=== PATIENT | male | born 1995 | race African-American/Black ===

== ENCOUNTER 2021-12-20 05:28 | Emergency (ER) | payer OTHER ==
[2021-12-20 05:37] VITALS: BP 118/71; PULSE 77; RESP 15; TEMP 99.6
--- NOTE | 2021-12-20 05:41 | ED ---
ENT HPI - General Chief complaint: ENT Stated complaint: throat issues Time Seen by Provider: 12/20/21 05:41 Source: patient, RN notes reviewed, old records reviewed Mode of arrival: ambulatory Limitations: no limitations - History of Present Illness Initial comments: This is a 26-year-old male DF for evaluation. Patient resents today for evaluation regards to sore throat, some difficulty swallowing. May have felt feverish last night but denies fever currently. No travel history or sick contacts. MD complaint: sore throat -: minutes(s) Location: throat Severity: mild Severity scale (1-10): 3 Quality: stabbing Consistency: constant Improves with: none Worsens with: none Context-Epistaxis: history of similar Context- Ear: recent illness Associated Symptoms: sore throat - Related Data Allergies Allergy/AdvReac Type Severity Reaction Status Date / Time No Known Allergies Allergy Verified 12/20/21 05:34 Review of Systems ROS Statement: Those systems with pertinent positive or pertinent negative responses have been documented in the HPI. ROS Other: All systems not noted in ROS Statement are negative. Past Medical History Past Medical History: Asthma History of Any Multi-Drug Resistant Organisms: None Reported Past Surgical History: No Surgical Hx Reported Past Psychological History: No Psychological Hx Reported Smoking Status: Never smoker Past Alcohol Use History: Occasional Past Drug Use History: None Reported General Exam Limitations: no limitations General appearance: alert, in no apparent distress Head exam: Present: atraumatic, normocephalic, normal inspection Eye exam: Present: normal appearance, PERRL, EOMI. Absent: scleral icterus, conjunctival injection, periorbital swelling ENT exam: Present: normal exam, normal oropharynx (Positive pharyngitis erythematous and swelling of tonsils), mucous membranes moist Neck exam: Present: normal inspection. Absent: tenderness, meningismus, lymphadenopathy Respiratory exam: Present: normal lung sounds bilaterally. Absent: respiratory distress, wheezes, rales, rhonchi, stridor Cardiovascular Exam: Present: regular rate, normal rhythm, normal heart sounds. Absent: systolic murmur, diastolic murmur, rubs, gallop, clicks GI/Abdominal exam: Present: soft, normal bowel sounds. Absent: distended, tenderness, guarding, rebound, rigid Extremities exam: Present: normal inspection, full ROM, normal capillary refill. Absent: tenderness, pedal edema, joint swelling, calf tenderness Back exam: Present: normal inspection Neurological exam: Present: alert, oriented X3, CN II-XII intact Psychiatric exam: Present: normal affect, normal mood Skin exam: Present: warm, dry, intact, normal color. Absent: rash Course Vital Signs 12/20/21 05:34 Temperature 99.6 F Pulse Rate 77 Respiratory 15 Rate Blood Pressure 118/71 O2 Sat by Pulse 99 Oximetry - Reevaluation(s) Reevaluation #1: 12/20/21 05:57 Medical records reviewed Reevaluation #2: 12/20/21 05:57 Patient feels improved here in the ER Reevaluation #3: 12/20/21 05:57 Patient informed of results and questions answered Medical Decision Making - Medical Decision Making 26 male presents with acute pharyngitis some difficulty swallowing sore throat. Patient given medication here in the ER feels improved will start on antibiotics and can be discharged home - Radiology Data Radiology results: report reviewed, image reviewed Disposition Clinical Impression: Sore throat, Pharyngitis Disposition: HOME SELF-CARE Condition: Good Instructions (If sedation given, give patient instructions): Pharyngitis (ED) Is patient prescribed a controlled substance at d/c from ED?: No Referrals: None,Stated [Primary Care Provider] - 1-2 days Time of Disposition: 06:00
[2021-12-20] MEDS ORDERED: ACETAMINOPHEN TAB 500 MG TAB PO STA (05:55)
[2021-12-20] MEDS ORDERED: AMOXIC-POT CLAV 875-125MG 1 EACH TAB PO STA (05:55)
[2021-12-20] MEDS ORDERED: dexAMETHasone 2 MG TAB PO STA (05:55)
[2021-12-20] MEDS ORDERED: IBUPROFEN 800 MG TAB PO STA (05:55)
== END 2021-12-20 06:14 | disposition home or self-care (01) ==
LOC: EC 05:28
DX: J02.9 Acute pharyngitis, unspecified (principal); J45.909 Unspecified asthma, uncomplicated
CPT/HCPCS: 99283; J8540